=== PATIENT | male | born 1945 | race Caucasian/White ===

== ENCOUNTER → 2017-11-25 | Day surgery (SDC) | payer MEDICARE ==
[~2017-11-25] VITALS: Ht 180.3 cm; Wt 58.9 kg
[~2017-11-25] MED LIST: *morphine SULFATE 10 MG/ML PERIprocedure ONLY ONE; ACETAMINOPHEN 1000 MG/100 ML 100 ML IV ONE; BUPIVACAINE/EPINEPHRINE 0.25% 50 ML VIAL ONE; CHLORHEXIDINE GLUCONATE 2 % 1 PACK (2 CLOTHS) TOPICAL PRN; DIAZ5TAB PO; DO NOT ADM ANY ANTICOAGULANT DRUGS PRN; LACTATED RINGER'S 1000 ML IV PRN; LIDOCAINE HCL 1% PF 5 ML SYRINGE OTHER ONE; METOPROLOL TARTRATE 25 MG TAB PO PRN; MORPHINE SULFATE 2 MG/ML INJ IV PRN; MORPHINE SULFATE 4 MG/ML INJ ONE; NALOXONE HCL 0.4 MG/ML AMP ONE; ONDANSETRON HCL 4 MG/2 ML VIAL IV ONE; ONDANSETRON HCL 4 MG/2 ML VIAL IV PUSH PRN; POVIDONE IODINE 5% (ANTISEPSIS KIT) 4 APPLICATIONS EACH NARE PRN; PROPOFOL 200 MG/20 ML AMP IV ONE; ROCURONIUM INJ 50 MG/5 ML SYRINGE IV PUSH ONE; SODIUM CHLORID 0.9% 500 ML IV PRN; SUGAMMADEX SODIUM 200 MG/2 ML VIAL IV PUSH ONE; VENTAER INH; ceFAZolin 2 GM PREMIX 50 ML IV SCH
[2017-11-25 07:17] LABS: AUTOMATED NEUTROPHIL # 1.4 TH/MM3 (1.8-7.7); BASOPHIL % 0.4 % (0.0-2.0); EOSINOPHIL # 0.2 TH/MM3 (0-0.4); EOSINOPHIL % 6.4 % (0.0-4.0); HEMATOCRIT 37.9 % (39.0-51.0); HEMOGLOBIN 12.5 GM/DL (13.0-17.0); LYMPH % 39.6 % (9.0-44.0); LYMPHOCYTE # 1.5 TH/MM3 (1.0-4.8); MEAN CELL VOLUME 94.9 FL (80.0-100.0); MEAN CORPUSCULAR HEMOGLOBIN 31.2 PG (27.0-34.0); MEAN CORPUSCULAR HGB CONC 32.9 % (32.0-36.0); MONO % 15.4 % (0.0-8.0); MONOCYTE # 0.6 TH/MM3 (0-0.9); NEUT % 38.2 % (16.0-70.0); PLATELET COUNT 96 TH/MM3 (150-450); RED BLOOD COUNT 3.99 MIL/MM3 (4.50-5.90); RED CELL DISTRIBUTION WIDTH 13.9 % (11.6-17.2); WHITE BLOOD COUNT 3.7 TH/MM3 (4.0-11.0)
--- NOTE | 2017-11-25 09:34 | PD.OP ---
Operative Report Date of Surgery: Nov 25, 2017 Preoperative Diagnosis: severe GERD Postoperative Diagnosis: same Procedure: lap partial fundoplication Anesthesia: general Surgeon: Ash Castillo Assembler Trim(s): Janak Banuelos Operation and Findings: 270 degree fundoplication. EBL 5ml. Ash Castillo MD Nov 25, 2017 09:34
[2017-11-25 12:00] VITALS: BP 161/71; PULSE 59; RESP 20; TEMP 97; O2SAT 98
--- NOTE | 2017-11-25 21:57 | EKG ---
Date Performed: 11/25/2017 Time Performed: 07:04:05 PTAGE: 72 years EKG: SINUS BRADYCARDIA WITH FIRST DEGREE AV BLOCK POSSIBLE LEFT ATRIAL ENLARGEMENT NONSPECIFIC T -WAVE ABNORMALITY ABNORMAL ECG NO PREVIOUS TRACING DOCTOR: Mayo Renae Interpretating Date/Time 11/25/2017 21:55:44
--- NOTE | 2017-11-26 13:36 | MP ---
cc: DANYEL HERRON M.D., LOU[place] M. MD DATE OF SURGERY: 11/25/2017. PREOPERATIVE DIAGNOSIS: Severe gastroesophageal reflux disease. POSTOPERATIVE DIAGNOSIS: Severe gastroesophageal reflux disease. OPERATIVE PROCEDURE PERFORMED: Laparoscopic partial fundoplication. SURGEON: Dr. Danyel Herron INDOOR LANDSCAPER/GARDENER SURGEON: Dr. Janak Banuelos ANESTHESIA: General INDICATIONS FOR THE PROCEDURE: This is a pleasant 72-year-old gentleman who is refractory to medications for acid reflux disease. He has had upper endoscopies which have demonstrated esophagitis. He has gastroparesis. He has a history of hepatitis C. He was going through therapy but became intolerant of the medications. Medical therapy for his reflux is really not an option due to his intolerance. INTRAOPERATIVE FINDINGS: Successful 270 degree fundoplication over a 36-Czech bougie. ESTIMATED BLOOD LOSS: Estimated blood loss less than 5 mL. Some chronic liver changes photographed. DESCRIPTION OF PROCEDURE IN DETAIL: The patient identified as Sohail Jin and taken to the operating room and placed in the supine position. Sequential compression devices were placed on bilateral lower extremities. Following induction of adequate general endotracheal anesthesia, the patient's abdomen was prepped and draped in the usual sterile fashion with Betadine. A time-out procedure was performed. Following completion of te time-out procedure to everyone's satisfaction within the room, 0.25% Marcaine with epinephrine was injected at each incision site. A supraumbilical incision about 2 cm in length in the midline was carried out with scalpel dissection and dissection continued posteriorly to the level of the midline fascia. The fascia was incised with a scalpel and entry the peritoneal cavity facilitated carefully with a hemostat. The [employer] balloon Trejo trocar was placed in the peritoneal cavity and its balloon inflated to C02 insufflation to a level of 15 mmHg ensued. The patient was placed in a steep reverse Trendelenburg position and four upper abdominal 5 mm trocars were placed in the peritoneal cavity under direct laparoscopic view after incision in the skin with a scalpel. A Damaris-Flex liver retractor was placed beneath the left lateral lobe of the liver and retracted anteriorly and held in position with the Damaris-Flex liver retractor and then the robot arm. Using the harmonic scalpel, the gastrohepatic window was taken down. Laparoscopic identification of right diaphragmatic crura peritoneal attachments of the esophagus and stomach anteriorly were taken down with the harmonic scalpel. There was really no significant hiatal hernia. The fundus of the stomach was mobilized, taking down the short gastrics using the harmonic scalpel and carefully dissecting the fundus from the superior pole of the spleen. The left diaphragmatic crura was then cleared from its peritoneal attachments in the fundus of the stomach. A posterior window was then developed and the Damaris Flex bustos's hook retractor was placed beneath this posterior window retracting the GE junction inferiorly. A generous window was then developed using the harmonic scalpel posteriorly and the fundus of the stomach was brought through this posterior window without any tension. The Damaris-Flex bustos's hook retractor was removed. Then #0 Ethibond sutures using the suture social research assistant device were then used to attach the posterior wrap to the right diaphragmatic crura in two locations. Three sutures were used to suture the wrap to the right side of the esophagus taking partial-thickness esophagus, full-thickness stomach to about the 10 o'clock position of the esophagus. At the 2 o'clock position of the esophagus, the fundus was sutured to the esophagus taking full-thickness stomach a partial-thickness esophagus. A single suture was placed to the posterior wrap to the left diaphragmatic crura. This completed the partial fundoplication. Local anesthetic was placed in subdiaphragmatic position. The liver retractor was removed. Photographs were taken of the liver which showed some chronic changes as well as the gallbladder, which appeared normal in color and texture. Trocars were removed under direct visualization. There was no evidence of bleeding from trocar sites. The abdomen was desufflated actively through the supraumbilical port, which was then removed. The supraumbilical fascial incision was closed with multiple interrupted 0 Vicryl sutures. Port site skin incisions were approximated with 4-0 Monocryl subcuticular sutures and dressings were applied with Mastisol and half-inch brown Steri-Strips. The patient tolerated the procedure without apparent complication. Sponge, needle and instrument counts were correct at the end of the case. MD JAXON Jaramillo/MICHELLE /9:32 AM /1:22 PM
== END | disposition home or self-care (01) ==
LOC: HSDC 06:08
PROVIDERS: ATTEND Surgery Trauma Surgery
DX: K21.9 Gastro-esophageal reflux disease without esophagitis (principal); K44.9 Diaphragmatic hernia without obstruction or gangrene; R94.31 Abnormal electrocardiogram [ECG] [EKG]; J44.9 Chronic obstructive pulmonary disease, unspecified; Z87.891 Personal history of nicotine dependence
CPT/HCPCS: 00790; 43280; 85025; 93005; J0131; J0690; J2270; J2310; J3010; J7120; J2405